=== PATIENT | male | born 1970 | race Caucasian/White ===

== ENCOUNTER → 2018-05-14 | Outpatient (CLI) | payer BC ==
--- NOTE | 2018-05-14 15:20 | RAD ---
Right wrist, 3 views, 05/14/2018: HISTORY: Injury No fracture or dislocation is identified. IMPRESSION: No acute right wrist abnormality is detected. Right hand, 3 views, 05/14/2018: There is minimal spurring at the first CMC joint with a tiny periarticular calcification which is likely old. No acute fracture or dislocation is identified. IMPRESSION: No acute right hand abnormality is detected. Electronically signed by: Artemio Hardy MD (05/14/2018 3:16 PM) [facility]
--- NOTE | 2018-05-14 15:20 | RAD ---
Right wrist, 3 views, 05/14/2018: HISTORY: Injury No fracture or dislocation is identified. IMPRESSION: No acute right wrist abnormality is detected. Right hand, 3 views, 05/14/2018: There is minimal spurring at the first CMC joint with a tiny periarticular calcification which is likely old. No acute fracture or dislocation is identified. IMPRESSION: No acute right hand abnormality is detected. Electronically signed by: Artemio Hardy MD (05/14/2018 3:16 PM) [facility]
== END | disposition home or self-care (01) ==
LOC: DXRAD 13:22
PROVIDERS: ATTEND Family Medicine
DX: M79.641 Pain in right hand (principal); M25.531 Pain in right wrist
CPT/HCPCS: 73110; 73130

== ENCOUNTER → 2018-05-25 | Outpatient (CLI) | payer BC ==
--- NOTE | 2018-05-25 12:10 | RAD ---
EXAM: Left shoulder sonogram. HISTORY: Palpable lump. TECHNIQUE: Sonographic imaging of the left shoulder at the site of palpable concern was performed. COMPARISON: None. FINDINGS: There is a 5.0 x 5.1 x 1.0 cm nonvascular mass within the posterior left shoulder soft tissues at the site of concern. This is isoechoic to fat and likely a lipoma. 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 Given a family history of sarcoma, continued clinical follow-up of palpable abnormalities is recommended. Cross sectional imaging can be performed if there is continued concern. Electronically signed by: Magui Richardson MD (05/25/2018 12:07 PM) [id number]
== END | disposition home or self-care (01) ==
LOC: EDBD → US 09:40
PROVIDERS: ATTEND Family Medicine
DX: R22.31 Localized swelling, mass and lump, right upper limb (principal)
CPT/HCPCS: 76881

== ENCOUNTER → 2018-06-22 | Day surgery (SDC) | payer BC ==
[~2018-06-22] MED LIST: ALBUTEROL SULFATE 2.5 MG/3 ML NEBU. NEB PRN; ATROPINE 0.5 MG/5 ML DISP.SYRIN. IV PRN; IV RINGERS SOLUTION,LACTATED 1,000 ML IV SCH; LIDOCAINE 2% TOPICAL JELLY 5GM TUBE. TP ONE; NALOXONE 0.4 MG/ML VIAL. IV PRN; NAPR220C4 PO; ONDANSETRON PF 4 MG/2 ML VIAL. IV PRN; PROPOFOL 40 ML IV ONE; SIMV20TA3 PO; VARE1TAB20 PO; diphenhydrAMINE 50 MG/ML VIAL IV PRN
[2018-06-22 12:28] VITALS: BP 125/71
== END | disposition home or self-care (01) ==
LOC: SURG 11:07 → EDBD 13:00
PROVIDERS: ATTEND Surgery
DX: Z12.11 Encounter for screening for malignant neoplasm of colon (principal); F32.9 Major depressive disorder, single episode, unspecified; F41.9 Anxiety disorder, unspecified; M19.90 Unspecified osteoarthritis, unspecified site; Z87.891 Personal history of nicotine dependence; Z72.89 Other problems related to lifestyle; Z98.890 Other specified postprocedural states; Z79.899 Other long term (current) drug therapy
CPT/HCPCS: 45378; J2704; J7120

== ENCOUNTER → 2019-04-28 | Outpatient (CLI) | payer BC, OTHER ==
[2018-06-22 12:28] VITALS: BP 125/71
[~2019-04-28] MED LIST changes: -ALBUTEROL SULFATE 2.5 MG/3 ML NEBU. NEB PRN; -ATROPINE 0.5 MG/5 ML DISP.SYRIN. IV PRN; -IV RINGERS SOLUTION,LACTATED 1,000 ML IV SCH; -LIDOCAINE 2% TOPICAL JELLY 5GM TUBE. TP ONE; -NALOXONE 0.4 MG/ML VIAL. IV PRN; -ONDANSETRON PF 4 MG/2 ML VIAL. IV PRN; -PROPOFOL 40 ML IV ONE; -diphenhydrAMINE 50 MG/ML VIAL IV PRN
--- NOTE | 2019-04-29 12:14 | RAD ---
EXAM: AP, lateral and LS spot views of the lumbar spine DATE: 04/28/2019 12:00 AM INDICATION: Back pain COMPARISON: No Prior FINDINGS: There are 5 nonrib-bearing lumbar-type vertebral bodies. Vertebral body heights are preserved. Straightening of the normal lumbar lordosis. No spondylolisthesis. Mild facet degenerative changes are seen. Disc heights are grossly preserved. Moderate colonic stool content is seen. IMPRESSION: No evidence for acute fracture or subluxation. Electronically signed by: Christian Jimenez MD (04/29/2019 12:11 PM) [facility]
--- NOTE | 2019-04-29 12:21 | RAD ---
EXAM: AP pelvis, AP and lateral views of both hips DATE: 04/28/2019 12:00 AM INDICATION: Back and hip pain COMPARISON: No Prior FINDINGS: No evidence of acute fracture or dislocation. Hip joint spaces are preserved with small marginal acetabular and femoral head/neck junction osteophytes. Moderate colonic stool content is seen. IMPRESSION: 1. No evidence of acute fracture or dislocation. 2. Bilateral hip degenerative change with small marginal femoral head/neck junction osteophytes Electronically signed by: Christian Jimenez MD (04/29/2019 12:18 PM) [facility] [place]
== END | disposition home or self-care (01) ==
LOC: CT 13:27
PROVIDERS: ATTEND Family Medicine
DX: M47.816 Spondylosis without myelopathy or radiculopathy, lumbar region (principal); M16.0 Bilateral primary osteoarthritis of hip
CPT/HCPCS: 72100; 73521